=== PATIENT | female | born 1950 | race Caucasian/White ===

== ENCOUNTER → 2022-07-10 14:15 | Outpatient (CLI) | payer OTHER | END | disposition home or self-care (01) | LOC: LAB 14:15 | PROVIDERS: ATTEND Radiology Diagnostic Radiology | DX: R10.31 Right lower quadrant pain (principal) ==

== ENCOUNTER 2022-07-12 07:10 | Outpatient (CLI) | payer OTHER | END 2022-07-12 07:18 | disposition home or self-care (01) | LOC: TOM 07:10 | PROVIDERS: ATTEND Specialist | DX: R10.31 Right lower quadrant pain (principal) | CPT/HCPCS: 74178; Q9965 ==